=== PATIENT | female | born 1980 | race Caucasian/White ===

== ENCOUNTER 2025-02-21 08:01 | Outpatient (CLI) | payer MEDICARE, MEDICAID, SELFPAY | END 2025-02-21 08:02 | disposition home or self-care (01) | LOC: FRMREF 08:01 | DX: R50.9 Fever, unspecified (principal); S80.861A Insect bite (nonvenomous), right lower leg, initial encounter; Z20.818 Contact with and (suspected) exposure to other bacterial communicable diseases | CPT/HCPCS: 86618 ==